=== PATIENT | male | born 1980 | race Caucasian/White ===

== ENCOUNTER 2024-05-07 21:05 | Emergency (ER) | payer BC, SELFPAY ==
[2024-05-07] VITALS (8 sets, daily range): BP systolic 101–173; BP diastolic 61–113; BMI 41.0
--- NOTE | 2024-05-07 21:36 | ED.GENMED ---
History of Present Illness
General
Chief Complaint: Heart Rate Problem
Source: patient
Exam Limitations: none
Time Seen by Provider: 05/07/24 21:26
Nursing documentation reviewed up to this point in time: agreed with
History of Present Illness
History of Present Illness:
44-year-old male with a past medical history of asthma, diabetes, atrial fibrillation presents to the ER for evaluation of palpitations and irregular heart rate. Patient was recently diagnosed with atrial fibrillation and was seen at [place] [facility]. He was seen by Dr. Jaquez for cardiology. He says initially he was seen in the ER and was rate controlled and started on medications�currently taking Toprol, Eliquis, amiodarone. He says symptoms recurred and he returned last Monday
to [place] emergency room and was admitted and he had a HERNAN cardioversion. He was discharged Monday and a few days later he started again with palpitations and his Apple Watch noted that he was in atrial fibrillation again. Palpitations and
dizziness became more pronounced today which prompted visit to the ER. He denies any shortness of breath, he reports some mild chest discomfort but no significant chest pain. Denies any other complaints. He has been compliant with all medications
without missed doses.
Past History
Past History
ED Past Medical History: None
ED Past Surgical History: None
Review of Systems
Review of Systems
All Other Systems: ROS reviewed and negative except as documented in HPI and ROS
Constitutional: Denies fever
Respiratory: Denies cough or trouble breathing
Cardiac: Reports palpitations; Denies chest pain
ABD/GI: Denies abdominal pain
Musculoskeletal: Denies edema
Neurological: Reports dizzy; Denies headache
Phy Exam
Physical Exam
Physical Exam:
General: Awake, alert, oriented x3; no acute distress
Head: Normocephalic, atraumatic
Eyes: Conjunctiva normal
Throat: Airway intact, handling secretions
Neck: Trachea midline, no JVD
Lungs: Clear to auscultation bilaterally, no wheezing, rales, rhonchi
Heart: Tachycardia with irregularly irregular rhythm, no murmurs, gallops, or rubs
Neuro: No gross deficits
Extremities: No edema in extremities, warm and well-perfused
Scores
Heart Failure Risk
Heart Failure Risk Score: Not Applicable
Heart Score for Chest Pain Patients
STEMI patient?: Not applicable
Withdrawal Assessment of Alcohol
Withdrawal Assessment Completed?: Not applicable
Course
Orders/Labs/Results
Orders:
Orders
05/07/24 21:07
Electrocardiogram (*1) Urgent
Reason for Study: Atrial Fibrillation
EKG- Treatment ONCE
05/07/24 22:00
Complete Blood Count/With Diff Urgent
05/07/24 22:01
CMP [Comprehensive Metabolic Panel] Urgent
05/07/24 22:09
INR [Prothrombin Time] Urgent
PTT Urgent
05/07/24 22:30
Propofol [Diprivan] 20 ml .ROUTE .STK-MED
05/07/24 22:47
Propofol [Diprivan] 130 mg IV NOW STA
05/07/24 22:48
EKG with chest pain [ECG as needed] As Directed
ECG as needed for:: Rhythm Change
Abnormal Lab Results
05/07/24 05/07/24 05/07/24
22:00 22:01 22:09
Absolute Lymphs (auto) 3.5 H 10^3/uL
(1.2-3.4)
Absolute Monos (auto) 0.9 H 10^3/uL
(0.1-0.6)
PT 15.2 H Sec
(11.4-14.6)
BUN 21 H mg/dl
(9-20)
Glucose 109 H mg/dl
(70-99)
05/07/24 22:00
05/07/24 22:01
Vital Signs
Initial and Last Documented VS:
Initial Vital Signs
Temp Pulse Resp BP Pulse Ox
37.1 C 141 18 173/113 98
05/07/24 21:07 05/07/24 21:07 05/07/24 21:07 05/07/24 21:07 05/07/24 21:07
Last Documented Vital Signs
Temp Pulse Resp BP Pulse Ox
36.7 C 73 18 120/98 99
05/07/24 22:35 05/07/24 22:50 05/07/24 22:50 05/07/24 22:50 05/07/24 22:50
Procedures
Cardioversion
Indication:: Afib
Performed by:: Yaya Fabian MD
Synchronized?: Yes
Energy Used: 200 joules
Number of attempts: 1
Successful?: Yes
Complications: none
ASA Risk Score: Class II
Any reaction or bad outcome to prior sedation/anesthesia?: No history of a reaction
Sedation level to be attained: moderate
Chart and allergies reviewed: Yes
Patient reassessed prior to sedation: Yes
Time out completed at (validating right patient & procedure): 22:37
History of difficult intubation: No
Airway free of obstruction: Yes
Patient has a gag reflex: Yes
Patient is able to open mouth: Yes
Patient has no dentures: Yes
Patient has no loose teeth: Yes
Medication administered by Provider during Moderate Sedation: IV Propofol (mg)
Total dose administered: 130
Time drug administered: 22:37
Start Time: 22:37
Stop Time: 22:50
MDM/Problems Addressed
Differential Diagnosis Includes:
Atrial fibrillation/atrial flutter
MDM/Problems Addressed:
44-year-old male presents for evaluation of palpitations and dizziness, irregular heart rate; recently diagnosed atrial fibrillation as described above. Hypertensive and tachycardic on arrival. Physical exam as above. His EKG shows atrial flutter
with 2:1 conduction. I was able to review external report from HERNAN cardioversion at [facility] earlier this week�HERNAN showed no thrombus left atrial appendage. Case discussed with cardiology regarding elective ED cardioversion versus rate
control�with no thrombus noted on recent HERNAN and continuous anticoagulation since, elective ED cardioversion reasonable in this circumstance. I had a long discussion with the patient offered elective cardioversion versus rate control�he wishes to
proceed with cardioversion. Will send basic labs and proceed with cardioversion.
Labs reviewed: CBC and CMP unremarkable. Will proceed with ED cardioversion as above.
Cardioversion successful confirmed by EKG. Patient feeling well after procedure. Will monitor status post sedation and if he remains stable and asymptomatic can discharge with outpatient cardiology referral.
Chronic conditions affecting care:
Atrial fibrillation
Acute Exacerbation and/or Progression of Chronic Illness:
Acutely hypertensive
Acute Exacerbation and/or Progression of Chronic Illness: HTN
*Pulse Oximetry
Patient hypoxic: no
*EKG
Interpreted by ED Provider?: Yes
Heart Rate: 140
Rate: tachycardiac
Rhythm: atrial flutter
[place]: normal axis
Ischemia: non-specific ST changes
*Critical Care Note
Total Time (30-74mins, 75-104mins- exclusive of procedures): Not Applicable
Data Reviewed
Review of Other/Old Records Reveals: Testing (Reviewed external records from [place] via online patient portal including HERNAN/cardioversion report)
Source: patient, records and spouse
Patient Management
Discussion with other providers: Firer Bisque Kiln (Discussed with cardiology)
ED Attending Note
-
Portions of this chart may have been created with voice recognition software.� Occasional wrong word or��sound alike� substitutions may have occurred due to the inherent limitations of voice recognition software.
Discharge Plan
Departure
Patient with high blood pressure during this ER visit?: Yes
Discharge Problem:
Atrial flutter with rapid ventricular response, Encounter for cardioversion procedure
Instructions: Cardioversion - Discharge instructions, MODERATE SEDATION ADULT
Prescriptions:
No Action
albuterol sulfate 1.25 mg/3 mL Solution For Nebulization
1.25 mg INHALATION Q4H
metoprolol succinate 25 mg Tablet Extended Release 24 Hr
25 mg PO BID
Eliquis 5 mg Tablet
5 mg PO BID
Mounjaro 2.5 mg/0.5 mL Pen Injector
2.5 mg SC WEEKLY
Rx Instructions:
monday
amiodarone
200 mg PO BID
Referrals:
Franny Gama MD [Family Provider] -
Ernie Jaquez MD [Non-Admitting Privileges] - Keep scheduled appt
Activity Restrictions/Additional Instructions:
Thank you for visiting the Emergency Department at [facility].
1. Please schedule a follow up appointment as directed. Call first thing tomorrow morning to make an appointment.
2. If indicated, please take your medications as instructed and indicated on discharge paperwork.
3. If any of your symptoms do not improve, or persist, or become more severe within 6-12 hours, please return to the emergency department for further care.
4. Please return to the emergency department if you develop a headache, neck pain/stiffness, fever greater than 100.4F, chest pain, shortness of breath, persistent nausea, vomiting, slurred speech, difficulty walking, numbness/tingling, weakness,
signs of infection or any other symptoms that are worrisome to you.
Please call [phone] if you have any questions.
Interventions
Interventions:
*Risk Screen - Suicide Last Done: 05/07/24 21:09
*General Assessment Last Done: 05/07/24 21:09
*Neglect/Abuse Screening Last Done: 05/07/24 21:09
*ED- Fall Risk Assessment Last Done: 05/07/24 22:33
*ED COVID-19 Vaccine History Last Done: 05/07/24 21:09
ED- Cardiac Assessment Last Done: 05/07/24 22:33
Discharge Date and Time
Print Language: YAKUT
[2024-05-07 22:14] LABS: % Basophils 0.6 % (0-2); % Eosinophils 3.7 % (0-6); % Immature Granulocytes 0.4 % (0-0.5); % Lymphocytes 33.3 % (20.5-51.1); % Monocytes 8.5 % (1.7-9.3); % Neutrophils 53.5 % (42.2-75.2); Absolute Basophils 0.1 10^3/uL (0-0.2); Absolute Eosinophils 0.4 10^3/uL (0-0.7); Absolute Lymphocytes 3.5 10^3/uL (1.2-3.4); Absolute Monocytes 0.9 10^3/uL (0.1-0.6); Absolute Neutrophils 5.6 10^3/uL (1.4-6.5); Hematocrit 44.5 % (39.0-52.0); Hemoglobin 15.2 g/dL (13.0-18.0); Mean Corp Hgb Conc. 34.2 g/dL (33.0-37.0); Mean Corpuscular Hgb 28.8 pg (27.0-31.0); Mean Corpuscular Volume 84.4 fL (80.0-94.0); Mean Platelet Volume 9.8 fL (7.4-10.4); Nucleated Red Blood Cells % 0 % (-); Platelet Count 377 10^3/uL (130-400); Red Blood Cell Count 5.27 10^6/uL (4.70-6.10); Red Cell Dist. Width 13.2 % (11.5-14.5); White Blood Cell Count 10.5 10^3/uL (4.8-10.8)
[2024-05-07 22:25] LABS: APTT 34.2 Sec (23.4-35.0); INR 1.17; PT 15.2 Sec (11.4-14.6)
[2024-05-07 22:27] LABS: ALT (SGPT) 39 U/L (0-50); AST (SGOT) 27 U/L (17-59); Albumin 4.5 g/dl (3.5-5.0); Alkaline Phosphatase 87 U/L (38-126); Blood Urea Nitrogen 21 mg/dl (9-20); Calcium 9.8 mg/dl (8.4-10.2); Carbon Dioxide 23 mmol/L (22-30); Chloride 105 mmol/L (98-107); Glucose 109 mg/dl (70-99); Sodium 139 mmol/L (135-145); Total Bilirubin 0.6 mg/dl (0.2-1.3); Total Protein 8.2 g/dl (6.3-8.2); eGFR > 60.00
[2024-05-07] MEDS: DIPRIVAN 130 MG IV (22:48)
[2024-05-08] VITALS: BP 115/76
[2024-05-08 00:07] VITALS: BP 102/75
[2024-05-08 00:10] VITALS: BP 117/80
== END 2024-05-08 00:42 | disposition home or self-care (01) ==
LOC: EMR 21:05
PROVIDERS: Emergency Medicine; EMERGENCY PHYSICIAN Emergency Medicine; FAMILY PHYSICIAN Internal Medicine
DX: I48.92 Unspecified atrial flutter (principal); R42 Dizziness and giddiness; R07.89 Other chest pain; E11.9 Type 2 diabetes mellitus without complications; I48.91 Unspecified atrial fibrillation; J45.909 Unspecified asthma, uncomplicated; Z79.01 Long term (current) use of anticoagulants; Z79.899 Other long term (current) drug therapy; Z79.84 Long term (current) use of oral hypoglycemic drugs
CPT/HCPCS: 92960; 99285; 99152; 80053; 85025; 85610; 85730; 93005

== ENCOUNTER 2024-05-18 22:18 | Emergency (ER) | payer BC, SELFPAY ==
[2024-05-18 22:54] LABS: % Basophils 0.6 % (0-2); % Eosinophils 2.7 % (0-6); % Immature Granulocytes 0.3 % (0-0.5); % Monocytes 7.4 % (1.7-9.3); Absolute Basophils 0.1 10^3/uL (0-0.2); Absolute Eosinophils 0.4 10^3/uL (0-0.7); Absolute Lymphocytes 3.6 10^3/uL (1.2-3.4); Absolute Neutrophils 7.9 10^3/uL (1.4-6.5); Hematocrit 44.9 % (39.0-52.0); Hemoglobin 15.2 g/dL (13.0-18.0); Mean Corp Hgb Conc. 33.9 g/dL (33.0-37.0); Mean Corpuscular Hgb 28.8 pg (27.0-31.0); Mean Platelet Volume 9.8 fL (7.4-10.4); Nucleated Red Blood Cells % 0 % (-); Platelet Count 338 10^3/uL (130-400); Red Blood Cell Count 5.28 10^6/uL (4.70-6.10); Red Cell Dist. Width 13.2 % (11.5-14.5)
[2024-05-18 23:04] LABS: ALT (SGPT) 32 U/L (0-50); AST (SGOT) 26 U/L (17-59); Albumin 4.8 g/dl (3.5-5.0); Alkaline Phosphatase 85 U/L (38-126); Blood Urea Nitrogen 26 mg/dl (9-20); Calcium 9.9 mg/dl (8.4-10.2); Carbon Dioxide 23 mmol/L (22-30); Chloride 108 mmol/L (98-107); Glucose 103 mg/dl (70-99); Potassium 4.2 mmol/L (3.5-5.1); Sodium 143 mmol/L (135-145); Total Bilirubin 0.9 mg/dl (0.2-1.3); Total Protein 8.7 g/dl (6.3-8.2); eGFR > 60.00
[2024-05-19 00:46] VITALS: BP 116/72; BMI 37.7
[2024-05-19 01:00] VITALS: BP 107/59
[2024-05-19 01:29] LABS: Troponin I < 0.012 ng/ml
--- NOTE | 2024-05-19 01:45 | EDRN ---
Updated patient and on labs and on delay for seeing provider, understanding and resting comfortably
[2024-05-19 02:00] VITALS: BP 126/70
--- NOTE | 2024-05-19 02:18 | ED.GENMED ---
History of Present Illness
General
Chief Complaint: Cardiac Symptoms
Source: patient and records
Exam Limitations: none
Time Seen by Provider: 05/19/24 02:05
History of Present Illness
History of Present Illness:
44yoM with a history of atrial fibrillation/flutter presenting with his for evaluation of palpitations. Patient was at work this evening. 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 He started to have some fluttering in his chest and started to feel
lightheaded. Symptoms feel similar to his previous episodes of A-fib so he decided to come to the ED for evaluation. His Apple Watch indicated that his heart rate was up to 120 today but would improve after he rested. He denies any chest pain,
shortness of breath, syncope. He is currently feeling much better. Patient was recently diagnosed with A-fib earlier this month and was admitted at [facility] for several days. He was seen in the ED on 05/07/2024 for atrial flutter with
RVR and he was cardioverted at that time. Patient is currently maintained on Eliquis, amiodarone, and metoprolol. His sausage linker at [facility] did refer him for an ablation but he has not scheduled this yet.
Past History
Past History
ED Past Medical History: None
ED Past Surgical History: None
Phy Exam
General Physical Exam
General Presentation: well appearing and no apparent distress
General age: appears stated age
General Skin: warm and dry
General Habitus: normal
General Mental: alert
ENT Exam
ENT Exam: normocephalic
Cardiovascular Exam
Cardiovascular Exam: regular rate/rhythm, no edema, no murmur and normal peripheral pulses (2+ DP pulses bilaterally)
Neurological Exam
Neurological Exam: alert
Mark Coma Scale
Eye Opening: Spontaneous
Verbal Response: Oriented
Motor Response: Obeys Commands
GCS Total Score: 15
Skin Exam
Skin Exam: normal color and warm/dry
Psychiatric Exam
Psychiatric Exam: normal mood/affect
Course
Orders/Labs/Results
Orders:
Orders
05/18/24 22:18
ECG [Electrocardiogram (*1)] Urgent
Reason for Study: Atrial Flutter
05/18/24 22:19
EKG- Treatment ONCE
05/18/24 22:33
Complete Blood Count/With Diff Urgent
Comprehensive Metabolic Panel Urgent
Magnesium Urgent
Comment: ADDED
TSH Urgent
Comment: ADDED
05/19/24 00:56
Troponin I Urgent
05/19/24 02:05
Add On- LAB Urgent
Tests Added?: magnesium, TSH
Abnormal Lab Results
05/18/24
22:33
WBC 13.0 H 10^3/uL
(4.8-10.8)
Absolute Neuts (auto) 7.9 H 10^3/uL
(1.4-6.5)
Absolute Lymphs (auto) 3.6 H 10^3/uL
(1.2-3.4)
Absolute Monos (auto) 1.0 H 10^3/uL
(0.1-0.6)
Chloride 108 H mmol/L
(98-107)
BUN 26 H mg/dl
(9-20)
Glucose 103 H mg/dl
(70-99)
Total Protein 8.7 H g/dl
(6.3-8.2)
05/18/24 22:33
05/18/24 22:33
Vital Signs
Initial and Last Documented VS:
Initial Vital Signs
Temp
98.6 F
05/18/24 22:26
Last Documented Vital Signs
Temp Pulse Resp BP Pulse Ox
98.6 F 55 12 138/74 96
05/18/24 22:26 05/19/24 03:00 05/19/24 03:00 05/19/24 03:00 05/19/24 03:00
MDM/Problems Addressed
Differential Diagnosis Includes:
44yoM here with palpitations. Recent diagnosis of afib/flutter. Currently feeling significantly improved. No associated CP/SOB or syncope. VSS. EKG obtained in triage which shows normal sinus rhythm with a single PVC. Exam is reassuring.
Differential diagnosis includes but is not limited to: Arrhythmia, electrolyte abnormality, thyroid dysfunction
Initial ED plan: Labs obtained in triage. White count is 13 which is nonspecific. Potassium and troponin within normal limits. Will add on magnesium and TSH
*EKG
Interpreted by ED Provider?: Yes
EKG Intrepretation Date: 05/19/24
Heart Rate: 71
Rate: normal
Rhythm: sinus and PVC's
[place]: normal axis
Interval: normal interval
QRS Pattern: normal QRS
Ischemia: no ischemia
*Critical Care Note
Total Time (30-74mins, 75-104mins- exclusive of procedures): Not Applicable
Update Note
Update Note:
TSH and magnesium WNL. No telemetry events during ED stay and he remains in NSR on reassessment. He is stable for discharge. He was encouraged to f/u with his sausage linker. ED return precautions discussed. Patient in agreement with plan and was
discharged in stable condition.
ED Attending Note
-
Portions of this chart may have been created with voice recognition software.� Occasional wrong word or��sound alike� substitutions may have occurred due to the inherent limitations of voice recognition software.
Discharge Plan
Departure
Patient Disposition: Home (Routine Discharge)
Date of Disposition: 05/19/24
Time of Disposition: 03:02
Patient with high blood pressure during this ER visit?: No
Discharge Problem:
Palpitations
Instructions: Heart Palpitations
Prescriptions:
No Action
albuterol sulfate 1.25 mg/3 mL Solution For Nebulization
1.25 mg INHALATION Q4H
metoprolol succinate 25 mg Tablet Extended Release 24 Hr
25 mg PO BID
Eliquis 5 mg Tablet
5 mg PO BID
Mounjaro 2.5 mg/0.5 mL Pen Injector
2.5 mg SC WEEKLY
Rx Instructions:
monday
amiodarone
200 mg PO BID
Referrals:
Franny Gama MD [Family Provider] -
Activity Restrictions/Additional Instructions:
Please follow-up with your sausage linker. Return to the ER with any new or worsening symptoms.
Interventions
Interventions:
*Risk Screen - Suicide Last Done: 05/18/24 22:26
*General Assessment Last Done: 05/18/24 22:26
*Neglect/Abuse Screening Last Done: 05/18/24 22:26
*ED- Fall Risk Assessment Last Done: 05/19/24 00:46
*ED COVID-19 Vaccine History Last Done: 05/18/24 22:26
*Nursing Disposition Last Done: 05/19/24 03:13
ED- Pulmonary Assessment Last Done: 05/19/24 01:06
ED- Cardiac Assessment Last Done: 05/19/24 01:06
Discharge Date and Time
Discharge Date/Time: 05/19/24 03:13
Print Language: BRUNEIAN
[2024-05-19 02:53] LABS: Magnesium 1.9 mg/dl (1.6-2.3)
[2024-05-19 03:00] VITALS: BP 138/74
[2024-05-19 03:37] LABS: TSH 3.12 uIU/ml (0.47-4.68)
== END 2024-05-19 03:13 | disposition home or self-care (01) ==
LOC: EMR 22:18
PROVIDERS: Emergency Medicine; EMERGENCY PHYSICIAN Emergency Medicine; FAMILY PHYSICIAN Internal Medicine
DX: R00.2 Palpitations (principal); I48.91 Unspecified atrial fibrillation; I48.92 Unspecified atrial flutter; Z79.01 Long term (current) use of anticoagulants; Z79.899 Other long term (current) drug therapy
CPT/HCPCS: 99283; 80053; 83735; 84443; 84484; 85025; 93005

== ENCOUNTER 2024-05-23 16:07 | Emergency (ER) | payer BC, SELFPAY ==
[2024-05-23] VITALS (16 sets, daily range): BP systolic 99–133; BP diastolic 47–91
[2024-05-23 16:48] LABS: % Basophils 0.7 % (0-2); % Eosinophils 4.7 % (0-6); % Immature Granulocytes 0.2 % (0-0.5); % Lymphocytes 34.5 % (20.5-51.1); % Monocytes 6.3 % (1.7-9.3); % Neutrophils 53.6 % (42.2-75.2); Absolute Basophils 0.1 10^3/uL (0-0.2); Absolute Eosinophils 0.4 10^3/uL (0-0.7); Absolute Lymphocytes 2.8 10^3/uL (1.2-3.4); Absolute Monocytes 0.5 10^3/uL (0.1-0.6); Absolute Neutrophils 4.4 10^3/uL (1.4-6.5); Hematocrit 45.9 % (39.0-52.0); Hemoglobin 15.2 g/dL (13.0-18.0); Mean Corp Hgb Conc. 33.1 g/dL (33.0-37.0); Mean Corpuscular Hgb 28.9 pg (27.0-31.0); Mean Corpuscular Volume 87.3 fL (80.0-94.0); Mean Platelet Volume 9.8 fL (7.4-10.4); Nucleated Red Blood Cells % 0 % (-); Platelet Count 329 10^3/uL (130-400); Red Blood Cell Count 5.26 10^6/uL (4.70-6.10); Red Cell Dist. Width 13.4 % (11.5-14.5); White Blood Cell Count 8.2 10^3/uL (4.8-10.8)
[2024-05-23 16:59] LABS: INR 1.04; PT 14.1 Sec (11.4-14.6)
[2024-05-23 17:00] LABS: ALT (SGPT) 26 U/L (0-50); AST (SGOT) 22 U/L (17-59); Albumin 4.2 g/dl (3.5-5.0); Alkaline Phosphatase 71 U/L (38-126); Blood Urea Nitrogen 13 mg/dl (9-20); Calcium 9.5 mg/dl (8.4-10.2); Carbon Dioxide 23 mmol/L (22-30); Chloride 109 mmol/L (98-107); Glucose 212 mg/dl (70-99); Potassium 4.2 mmol/L (3.5-5.1); Sodium 142 mmol/L (135-145); Total Bilirubin 0.7 mg/dl (0.2-1.3); Total Protein 7.5 g/dl (6.3-8.2); eGFR > 60.00
[2024-05-23 17:12] LABS: Troponin I < 0.012 ng/ml
--- NOTE | 2024-05-23 17:50 | ED.GENMED ---
History of Present Illness
General
Chief Complaint: Heart Rate Problem
Source: patient
Exam Limitations: none
Time Seen by Provider: 05/23/24 17:40
History of Present Illness
History of Present Illness:
See MDM
Past History
Past History
ED Past Medical History: Arrthythmia and NIDDM
ED Past Surgical History: None
Phy Exam
Physical Exam
Physical Exam:
See MDM
Course
Orders/Labs/Results
Orders:
Orders
05/23/24 16:08
Electrocardiogram (*1) Urgent
Reason for Study: Atrial Flutter
EKG- Treatment ONCE
05/23/24 16:40
Complete Blood Count/With Diff Urgent
Comprehensive Metabolic Panel Urgent
PT/INR [Prothrombin Time] Urgent
Troponin I Urgent
05/23/24 18:22
Propofol [Diprivan] 20 ml .ROUTE .STK-MED
05/23/24 18:48
EKG [Electrocardiogram (*1)] Urgent
Reason for Study: Abnormal EKG
EKG- Treatment ONCE
Abnormal Lab Results
05/23/24
16:40
Chloride 109 H mmol/L
(98-107)
Glucose 212 H mg/dl
(70-99)
05/23/24 16:40
05/23/24 16:40
Vital Signs
Initial and Last Documented VS:
Initial Vital Signs
Temp Pulse Resp BP Pulse Ox
97.9 F 152 18 133/90 96
05/23/24 16:12 05/23/24 16:12 05/23/24 16:12 05/23/24 16:12 05/23/24 16:12
Last Documented Vital Signs
Temp Pulse Resp BP Pulse Ox
97.9 F 82 13 110/49 94
05/23/24 16:12 05/23/24 19:31 05/23/24 19:31 05/23/24 19:31 05/23/24 19:31
Procedures
Moderate Sedation
ASA Risk Score: Class II
Chart and allergies reviewed: Yes
Consent for anesthesia obtained: Yes
Time out completed (validating right patient & procedure): Yes
Moderate Sedation Start Time(when first medication is given): 18:40
History of difficult intubation: No
Airway free of obstruction: Yes
Patient has a gag reflex: Yes
Patient is able to open mouth: Yes
Patient has no dentures: Yes
Patient has no loose teeth: Yes
Medication administered by Provider during Moderate Sedation: IV Propofol (mg)
Total dose administered: 175
Time drug administered: 18:40
Moderate Sedation Procedure End Time: 18:40
Cardioversion
Indication:: Other (A flutter)
Performed by:: Epifanio Red DO
Synchronized?: Yes
Energy Used: Other (70 Joules)
Number of attempts: 1
Successful?: Yes
ASA Risk Score: Class II
Any reaction or bad outcome to prior sedation/anesthesia?: No history of a reaction
Sedation level to be attained: moderate
Chart and allergies reviewed: Yes
Patient reassessed prior to sedation: Yes
Time out completed at (validating right patient & procedure): 18:38
History of difficult intubation: No
Airway free of obstruction: Yes
Patient has a gag reflex: Yes
Patient is able to open mouth: Yes
Patient has no dentures: Yes
Patient has no loose teeth: Yes
Medication administered by Provider during Moderate Sedation: IV Propofol (mg)
Total dose administered: 175
Time drug administered: 18:40
Start Time: 18:40
Stop Time: 18:55
MDM/Problems Addressed
Differential Diagnosis Includes:
HPI and MDM Narrative:
44-year-old male presenting with palpitations. This has been ongoing since Monday. He was recently diagnosed with A-fib/a flutter 1 month ago. He was placed on Eliquis, metoprolol and amiodarone. Patient has been cardioverted twice over the past
month. He is not necessarily interested in cardioversion again. He is post to follow-up with cardiology to discuss ablation. He complains of palpitations and shortness of breath with exertion. Patient consistently tachycardic in the 150s and EKG
consistent with A flutter
Physical exam
General: Well appearing and non-toxic
HEENT: protecting airway
Neck: appears supple
CV: No evidence of cyanosis. Tachycardic
Resp: No accessory muscle use
Abd: Non-distended
Extremities: No deformities. No leg edema
Neuro: alert
Psych: Normal affect
Skin: Intact
Problems Addressed including Acute and Chronic Conditions affecting care:
1. Atrial flutter
Acuity: acute
Prognosis: stable
Details: Will discuss case with cardiology
Updates
Case discussed with cardiology. We offered the patient cardioversion and expedite follow-up or admit on amnio drip. Patient states he does not feel great and opted for cardioversion and discharge. Patient tolerated cardioversion well. Will
increase amiodarone back up to twice a day
Differential Diagnosis (but not limited to): Atrial flutter, dehydration
Testing considered: Troponin
Drug therapy (if applicable): OTC meds, please see d/c instruction regarding Rx drugs
Amount and/or Complexity of Data Reviewed
Clinical info obtained from: Patient
External data reviewed: N/A
Labs I independently reviewed (but not limited to): Mild hyperglycemia
Radiology: N/A
Pulse Ox: not hypoxic
EKG independently reviewed: Atrial flutter, normal axis, no STEMI
Medication Administration Professional: A flutter
Critical Care: N/A
Risk of Complication:
Social Determinants of health: Good social support
Discussed with other providers: Film Touch Up Inspector
Escalation of Care includes Admit/Obs: After being observed in the Emergency Department, pt stable for discharge.
Occasional wrong word or 'sound a like' substitutions may have occurred due to the inherent limitations of voice recognition software. Read the chart carefully and recognize, using context, where substitutions have occurred.
*Critical Care Note
Total Time (30-74mins, 75-104mins- exclusive of procedures): Not Applicable
ED Attending Note
-
Portions of this chart may have been created with voice recognition software.� Occasional wrong word or��sound alike� substitutions may have occurred due to the inherent limitations of voice recognition software.
Discharge Plan
Departure
Patient Disposition: Home (Routine Discharge)
Date of Disposition: 05/23/24
Time of Disposition: 18:53
Patient with high blood pressure during this ER visit?: No
Discharge Problem:
Atrial flutter
Instructions: Atrial Fibrillation (DC), MODERATE SEDATION ADULT
Prescriptions:
No Action
albuterol sulfate 1.25 mg/3 mL Solution For Nebulization
1.25 mg INHALATION Q4H
metoprolol succinate 25 mg Tablet Extended Release 24 Hr
25 mg PO BID
Eliquis 5 mg Tablet
5 mg PO BID
Mounjaro 2.5 mg/0.5 mL Pen Injector
2.5 mg SC WEEKLY
Rx Instructions:
monday
amiodarone
200 mg PO BID
Referrals:
Franny Gama MD [Family Provider] -
Activity Restrictions/Additional Instructions:
Please return for any worsening symptoms.
You may return at any time if you have further concerns.
Please follow up with your doctor at the first available appointment, preferably this week.
As we discussed, the shipfitter helper indicated that they will expedite your follow-up. If you do not hear from them, please give them a call.
Thank you for choosing [facility].
Interventions
Interventions:
*Risk Screen - Suicide Last Done: 05/23/24 16:12
*General Assessment Last Done: 05/23/24 16:12
*Neglect/Abuse Screening Last Done: 05/23/24 16:12
*ED- Fall Risk Assessment Last Done: 05/23/24 16:29
*ED COVID-19 Vaccine History Last Done: 05/23/24 16:12
*Nursing Disposition Last Done: 05/23/24 20:05
ED- Cardiac Assessment Last Done: 05/23/24 16:29
ED- Pulmonary Assessment Last Done: 05/23/24 16:29
Discharge Date and Time
Discharge Date/Time: 05/23/24 19:50
Print Language: [place]
== END 2024-05-23 19:50 | disposition home or self-care (01) ==
LOC: EMR 16:07
PROVIDERS: EMERGENCY PHYSICIAN Student in an Organized Health Care Education/Training Program; FAMILY PHYSICIAN Internal Medicine
DX: I48.92 Unspecified atrial flutter (principal); E11.65 Type 2 diabetes mellitus with hyperglycemia; Z79.01 Long term (current) use of anticoagulants; Z79.899 Other long term (current) drug therapy
CPT/HCPCS: 92960; 99152; 99285; 80053; 84484; 85025; 85610; 93005

== ENCOUNTER 2024-08-07 06:00 | Day surgery (SDC) | payer BC, SELFPAY ==
[2024-07-18 13:46] VITALS: BMI 37.9
[2024-07-18 14:09] LABS: % Basophils 0.9 % (0-2); % Eosinophils 3.9 % (0-6); % Immature Granulocytes 0.3 % (0-0.5); % Lymphocytes 32.6 % (20.5-51.1); % Monocytes 9.2 % (1.7-9.3); % Neutrophils 53.1 % (42.2-75.2); Absolute Basophils 0.1 10^3/uL (0-0.2); Absolute Eosinophils 0.4 10^3/uL (0-0.7); Absolute Lymphocytes 2.9 10^3/uL (1.2-3.4); Absolute Monocytes 0.8 10^3/uL (0.1-0.6); Absolute Neutrophils 4.8 10^3/uL (1.4-6.5); Hematocrit 46.4 % (39.0-52.0); Hemoglobin 15.3 g/dL (13.0-18.0); Mean Corpuscular Hgb 29.4 pg (27.0-31.0); Mean Corpuscular Volume 89.2 fL (80.0-94.0); Nucleated Red Blood Cells % 0 % (-); Platelet Count 358 10^3/uL (130-400)
[2024-07-18 14:18] LABS: INR 0.92; PT 12.9 Sec (11.4-14.6)
[2024-07-18 14:37] LABS: ALT (SGPT) 28 U/L (0-50); AST (SGOT) 19 U/L (17-59); Albumin 4.6 g/dl (3.5-5.0); Alkaline Phosphatase 62 U/L (38-126); Blood Urea Nitrogen 15 mg/dl (9-20); Calcium 9.7 mg/dl (8.4-10.2); Carbon Dioxide 26 mmol/L (22-30); Chloride 109 mmol/L (98-107); Estimated Creatinine Clearance > 125 ml/min; Glucose 105 mg/dl (70-99); Magnesium 2.3 mg/dl (1.6-2.3); Sodium 143 mmol/L (135-145); Total Bilirubin 0.5 mg/dl (0.2-1.3); Total Protein 8.3 g/dl (6.3-8.2); eGFR > 60.00
--- NOTE | 2024-07-18 15:13 | HPS.HSE ---
Family Physician
-
Family Physician: Franny Gama
Chief Complaint
-
Atrial fibrillation. Typical atrial flutter.
History of Present Illness
The patient is a 44 year old male presenting today for typical atrial flutter. He does report a history of palpitations, vague chest discomfort, shortness of breath, and fatigue all likely secondary to this diagnosis. His symptoms have
been present over the last several months; however, they have been progressively worsening since April 2024. He has required several hospitalizations and emergency room visits due to his overwhelming symptoms. He has undergone 3 cardioversions
previously. Per previous documentation, he is also noted to have atrial fibrillation. He is on current pharmacological therapy with Amiodarone and Metoprolol Succinate. He does report compliance with Eliquis for oral anticoagulation due to a
CHADS-VASc of 2. His most recent CAM revealed atrial flutter as his predominant rhythm with an average heart rate of 124 beats per minute. He is interested in pursuing pulmonary vein isolation for more definitive arrhythmia management. He denies any
current complaints today such as chest pain, shortness of breath at rest, nausea, vomiting, diarrhea, lightheadedness, dizziness, cough, sore throat, or fever.
Medical History
Past Medical History
Past Medical History: Reports Other
Additional Past Medical History:
1. Typical atrial flutter and atrial fibrillation, status post cardioversion x3; pharmacological therapy with Amiodarone and Metoprolol Succinate and oral anticoagulation with Eliquis.
2. Sinus tachycardia, undergoing medication adjustments.
3. Cardiomyopathy, likely tachycardia induced.
4. Asthma, mild and intermittent.
5. Obstructive sleep apnea, compliant with CPAP.
6. Non-insulin dependent diabetes.
7. Fatty liver disease.
8. Obesity, BMI 37.9.
9. History of tobacco abuse.
Past Surgical History: Reports Other
Additional Past Surgical History:
1. Cardioversion x3.
2. Transesophageal echocardiogram.
3. Right inguinal hernia repair.
4. Umbilical hernia repair.
5. Lymph node excision from groin.
6. Vasectomy.
7. Brandywine teeth extraction.
8. Colonoscopy.
Social History
Tobacco: Former Smoker (He is a former 1 pack per day cigarette smoker who quit tobacco altogether 10 years ago. )
Alcohol: Other (Rare use reported. )
Personal:
Living: Other (He lives with his and 3 daughters in a twin style home. )
Family History
Family History: Not pertinent
Allergies / Home Medications
Allergy/Medication List:
Home medications:
1. ProAir HFA inhaler 2 puffs up to 6 times a day as needed.
2. Amiodarone 200 mg p.o. twice a day.
3. Apixaban 5 mg p.o. twice a day.
4. Metoprolol Succinate 75 mg p.o. twice a day.
5. Singulair 10 mg p.o. daily.
6. Mounjaro 5 mg subcutaneous on Fridays.
Allergies: Seasonal. No known drug allergies.
Review of Systems
-
A 12 point ROS was completed and negative except as noted: Yes
Physical Exam
Vital Signs
Blood pressure 119/88. Heart rate 124. Respirations 18. Pulse ox 97% on room air.
Height 6 feet, 1 inch. Weight 130.2 kg. BMI 37.9.
Physical Exam
General: Well Developed, Well Nourished and No Apparent Distress
HEENT: NormoCephalic, Moist mucous membranes, Atraumatic and PERRLA
Respiratory: Clear
Cardiac: Tachycardia
GI: Soft, Non Tender, Non Distended and Other (Obese. )
Musculoskeletal: No Edema and Normal Gait & Station
Skin: Warm and Dry
Neuro: AO x 3 and Nonfocal/grossly intact
Laboratory Results
-
07/18/24 13:11
07/18/24 13:11
Laboratory Results
PT 12.9 Sec (11.4-14.6) 07/18/24 13:11
INR 0.92 07/18/24 13:11
Total Bilirubin 0.5 mg/dl (0.2-1.3) 07/18/24 13:11
AST 19 U/L (17-59) 07/18/24 13:11
ALT 28 U/L (0-50) 07/18/24 13:11
Alkaline Phosphatase 62 U/L (38-126) 07/18/24 13:11
Magnesium 2.3.
Type and screen B negative.
EKG 07/18/2024: Sinus tachycardia. T wave abnormality, consider inferior ischemia.
Chest CT 07/18/2024: Early branching of the left superior pulmonary vein. Otherwise, conventional pulmonary venous anatomy. No evidence for left atrial thrombus.
Impression/Plan
-
IMPRESSION/PLAN:
1. Typical atrial flutter and atrial fibrillation: The patient is in need of pulmonary vein isolation with Dr. Raman López on 08/07/2024. The benefits and risks of the procedure have been explained to the patient. The patient understands these
risks and wishes to proceed. He will not be required to undergo a pre-procedural transesophageal echocardiogram as he has been compliant with his home oral anticoagulation. He is aware to continue Eliquis uninterrupted prior to his procedure. He
will hold his Mounjaro within 1 week of his ablation. He will take no medications the morning of his procedure.
[2024-08-07] VITALS (14 sets, daily range): BP systolic 63–133; BP diastolic 20–100; BMI 35.6
[2024-08-07 06:56] LABS: Glucose - Point of Care 114 mg/dl (70-99)
--- NOTE | 2024-08-07 07:32 | ITS.CL.ABL ---
[facility] - Ablation
Ablation
Procedure Report:
Primary Rn Clinical Documentation: Dr Ernie Jaquez
Procedure Date: 08/07/2024
Patient History:
Patient is a pleasant 44-year-old male with a past medical history significant for asthma, diabetes mellitus type 2, nonischemic cardiomyopathy (tachycardia induced) symptomatic paroxysmal atrial fibrillation, and symptomatic paroxysmal atrial
flutter.
See H&P for complete details.
Indication:
Symptomatic persistent atrial flutter
Symptomatic paroxysmal atrial fibrillation
Nonischemic cardiomyopathy
Arrhythmia Specific History:
Prior Medical Therapies for Rate and Rhythm Control:
X Beta-fercho
[ ] Calcium channel-fercho
X Amiodarone
[ ] Dronederone
[ ] Sotalol
[ ] Flecainide
[ ] Dofetilide
[ ] Options limited by bradycardia
[ ] Options limited by comorbid renal disease
Prior Procedural Therapies for AF/AFL:
X Cardioversion
[ ] Pulmonary Vein Isolation
[ ] Posterior Wall Isolation
[ ] Additional lines (Specify)
[ ] Surgical García-MAZE or PVI (Specify)
Procedure Performed:
X AF ablation procedure (67739) -- includes LA/CS pacing, trans-septal, 3D mapping, + ICE
[ ] +IV drug (77973)
X +Other Arrhythmia (80311) -- typical atrial flutter (CTI ablation)
X +Other AF Line/ablation (79517 x2 ) -- Floor line, roof line, posterior wall isolation
Risks and expected recovery has been explained in detail. Alternative options have been explored, and in a shared-decision making fashion we have decided that this was the most appropriate procedure.
Method
NPO status confirmed. Grounding pad applied. Defibrillator pads applied. Continuous surface ECG, pulse oximetry, and blood pressure were monitored. Procedure was performed under general anesthesia, with anesthesia services.
Both groins were clipped, prepped with Chloraprep, and draped in sterile fashion. Time out was called. Local anesthesia administered with bupivacaine. The right femoral vein was accessed for catheter placement, using ultrasound guidance (images
saved to record), micro-puncture needle/wire, and modified seldinger technique. 3 sheaths were placed. The following catheters were used:
[ ] Tacticath SE (D/F Curve) ablation catheter
X Viewflex 9Fr ICE catheter
X Inquiry decapolar 6Fr diagnostic catheter
[ ] CRD Hex 6Fr
X Agilis 11.5 Fr Steerable Sheath
X Sphere-9 Ablation catheter
[ ] Advisor HD Grid Mapping Catheter, SE
[ ] Acuson AcuNav 8 Fr ICE catheter
[ ]Other: [ ]
A multipolar catheter were advanced to the coronary sinus. Intracardiac ultrasound (ICE) was carefully advanced into the right atrium to guide sheath placement over a J-wire, catheter placement, guide trans-septal puncture, identify potential
complications, identify anatomic structures and ensure proper contact between ablation catheter and tissue.
Heparin was given to achieve and maintain a target ACT of 300-400 seconds throughout the procedure.
The Sphere-9 mapping/ablation catheter (through long steerable sheath was used to map, record, pace, and ablate. Three-dimensional electroanatomic mapping was utilized with careful attention to anatomic landmarks, including the coronary sinus,
IVC-RA and SVC-RA junction, tricuspid valve annulus, and region of the His bundle electrogram. Tachycardia was characterized by activation patterns in the CS catheters. Entrainment maneuvers established cavotricuspid isthmus-dependence. TCL for
Typical CTI dependent AFL 250 ms. An ablation line was created from the tricuspid annulus to the IVC in the 6:00 position (OCCITAN clock/caudal EAM projection). A combination of RF and PF was used with careful monitoring of impedance, AV conduction,
power, and temperature. The patient's atrial flutter terminated during ablation. Ablation continued until a line was complete from the tricuspid valve annulus to the IVC-RA junction during CS pacing. Clockwise and counterclockwise trans-isthmus
times were determined, and RA activation patterns confirmed bidirectional block.
Next, we turned our attention to the AF Ablation.
Trans-septal access was performed under ICE guidance. The trans-septal puncture was performed with a SafeSept wire through a Brockenbrough needle assembly through the steerable sheath. The wire was visualized as it entered the LSPV and system
advanced under ICE guidance and fluoroscopy into the LA. The Brockenbrough needle assembly, SafeSept wire and sheath dilator were removed under negative pressure. LA pressure was measured and recorded.
ICE and 3D mapping was performed to identify relevant cardiac structures. A careful 3D map was created to assess for regions of low-voltage and abnormal electrogram signals using Sphere- catheter. Additional mapping was performed as outlined below.
Prior to ablation, glycopyrrolate was provided. Sphere 9 catheter was advanced into the left atrium. Electroanatomic mapping was performed using the Sphere 9 catheter. Pulmonary vein isolation was performed using pulsed field ablation in a
circumferential manner. Contact was visualized via EAM, ICE, fluoroscopy, and EGM signals. Posterior wall isolation with floor and roof line was also performed by pulsed field ablation. Following completion of ablation lesions, a post-ablation
voltage/activation map was performed in sinus rhythm. Entrance and exit block were confirmed for each vein and the posterior wall.
Catheter and sheath were removed from the left atrium. Bidirectional block remained persistent at the CTI ablation line. Post-ablation intracardiac echo evaluation was consistent with pre-ablation with no changes and no pericardial effusion and
there is no left atrial thrombus or left ventricle thrombus seen. Electrophysiology study was performed. Hemostasis was obtained with figure of 8 stitch for each groin and with manual pressure. Protamine was used for reversal.
Estimated Blood Loss
5 mL
Complications
None
Fluoroscopy: 4.4 minutes; 40.8 mGy; DAP 5.02
LA Pressure: Pre 16 mmHg, post 19 mmHg
Baseline Intervals:
Rhythm: AFL
TCL: 250 ms
QRS: 92 ms
Post-Procedure Intervals:
CA: 176 ms
QRS: 94 ms
QT: 408 ms
QTc: 436 ms
A-A: 877 ms
R-R: 877 ms
AVWB: 240 ms
AERP: 600/220 ms
Recommendations
- Bedrest with straight-leg precautions as ordered
- Anticipate same day discharge if patient meeting clinical metrics
- Resume home medications as indicated
- Ok to resume anticoagulation tonight if patient and groin sites stable
- PPI daily for 30 days
- Plan for follow-up in office as scheduled
- Continue amiodarone with planned discontinuation at 3 months
� Repeat transthoracic echocardiogram per primary resolution specialist in 3 months for reassessment of EF
Raman López, , FACC, RS
Clinical Cardiac Operations Supervisor
cc: Dr Ernie Jaquez, Dr Franny Gama
[2024-08-07 08:57] LABS: ACT-LR - POC 245 Seconds (116-155)
[2024-08-07 09:11] LABS: ACT-LR - POC 303 Seconds (116-155)
[2024-08-07 09:29] LABS: ACT-LR - POC 343 Seconds (116-155)
[2024-08-07 10:02] LABS: ACT-LR - POC 321 Seconds (116-155)
[2024-08-07 10:20] LABS: ACT-LR - POC 372 Seconds (116-155)
[2024-08-07 10:29] LABS: ACT-LR - POC 252 Seconds (116-155)
[2024-08-07] MEDS: TYLENOL 650 MG PO (11:16)
--- NOTE | 2024-08-07 14:11 | W.PN.UPDATE ---
Update Note
Progress Note Update
44 yo WM s/p PVI (Same day). He denies cp, sob, john diet, groin c/d/i F08 intact, EKG SR. He will resume Eliquis tonight and continue amiodarone and metoprolol. We will add PPI for 30 days. Activity restrictions reviewed. He will f/u Dr. López in 3
mo. He is for d/c home after 330p if groin stable and voiding.
== END 2024-08-07 15:30 | disposition home or self-care (01) ==
LOC: CATH 06:00
PROVIDERS: ATTENDING PHYSICIAN Internal Medicine Cardiovascular Disease; FAMILY PHYSICIAN Internal Medicine; OTHER PHYSICIAN Internal Medicine
DX: I48.19 Other persistent atrial fibrillation (principal); I42.8 Other cardiomyopathies; I48.3 Typical atrial flutter; E11.9 Type 2 diabetes mellitus without complications; J45.909 Unspecified asthma, uncomplicated; K76.0 Fatty (change of) liver, not elsewhere classified; E66.9 Obesity, unspecified; Z68.37 Body mass index [BMI] 37.0-37.9, adult; Z87.891 Personal history of nicotine dependence; G47.33 Obstructive sleep apnea (adult) (pediatric); Z79.899 Other long term (current) drug therapy; Z79.01 Long term (current) use of anticoagulants
CPT/HCPCS: C1733; C1894; C1766; 36415; 75572; 80053; 82962; 83735; 85025; 85347; 85610; 86850; 86900; 86901; 93005; 93655; 93656; 93657; Q9967

== ENCOUNTER 2024-10-19 02:47 | Emergency (ER) | payer BC, SELFPAY ==
[2024-10-19 02:54] VITALS: BP 188/109
[2024-10-19 03:00] VITALS: BMI 39.7
[2024-10-19 03:03] VITALS: BP 153/71
--- NOTE | 2024-10-19 03:06 | ED.GENMED ---
History of Present Illness
<Brain Mckeon MD, Resident - Last Filed: 10/19/24 05:17>
General
Chief Complaint: Cardiac Symptoms
Source: patient
Time Seen by Provider: 10/19/24 03:00
History of Present Illness
History of Present Illness:
Patient is a 44-year-old male who presents to the emergency department with chest palpitations with right-sided chest pain. He has a history of atrial fibrillation/flutter ablation in July. Patient takes Eliquis, metoprolol, amiodarone and has been
compliant with his medications. He has a history of asthma and takes a rescue inhaler and Singulair during the summertime. He has been seen in the emergency department in the past for atrial flutter prior to his ablation and required 2
cardioversions and return to normal sinus rhythm. Patient was in his normal state of health and was doing some housework when around noon he became lightheaded and noticed that he was having chest palpitations. He went to rest but the symptoms
continued and kept getting worse. during the palpitations he felt as if he was starting to get short of breath and took multiple doses of his albuterol rescue inhaler. He has had a mild headache all day. During the physical exam in the emergency
department he stated that his chest pain changed from his right side to his left side. he rated the chest pain a 1 out of 2 and dull.
Past History
<Brain Mckeon MD, Resident - Last Filed: 10/19/24 05:17>
Past History
ED Past Medical History: Arrthythmia and NIDDM
ED Past Surgical History: None
Social History
Tobacco: Non-smoker
Alcohol: Occasional
Drug: None
Personal:
Living: with family
Employment: Employed
Review of Systems
<Brain Mckeon MD, Resident - Last Filed: 10/19/24 05:17>
Review of Systems
Constitutional: Reports no symptoms
EENT: Reports no symptoms
Respiratory: Reports other ( shortness of breath)
Cardiac: Reports chest pain ( right-sided chest pain that shifted to the left side rated at a 1 out of 2) and palpitations
ABD/GI: Reports no symptoms
: Reports no symptoms
Musculoskeletal: Reports no symptoms
Skin: Reports no symptoms
Neurological: Reports no symptoms
Endocrine: Reports no symptoms
Hematologic/Lymphatic: Reports no symptoms
Psychiatric: Reports no symptoms
Phy Exam
<Brain Mcekon MD, Resident - Last Filed: 10/19/24 05:17>
General Physical Exam
General Presentation: well appearing and no apparent distress
General age: appears stated age
General Skin: warm
General Habitus: normal and obese
General Mental: alert
General Hydration: appears well hydrated
Cardiovascular Exam
Cardiovascular Exam: regular rate/rhythm, no edema, no gallop, no JVD, no murmur and normal peripheral pulses
Pulmonary Exam
Pulmonary Exam: lungs clear, no respiratory distress, no rales, chest non tender, no crackles, no rhonchi, no stridor, no wheezing and no cough
Neurological Exam
Neurological Exam: alert, oriented x3, no motor deficits and speech normal
Psychiatric Exam
Psychiatric Exam: normal mood/affect
Course
<Brain Mckeon MD, Resident - Last Filed: 10/19/24 05:17>
Orders/Labs/Results
Orders:
Orders
10/19/24 02:48
EKG [Electrocardiogram (*1)] Urgent
Reason for Study: Palpitations
EKG- Treatment ONCE
10/19/24 03:38
Complete Blood Count/With Diff Urgent
Comprehensive Metabolic Panel Urgent
D-Dimer Urgent
Troponin I Urgent
10/19/24 04:51
Potassium Chloride [KCl] 40 meq PO NOW STA
Abnormal Lab Results
10/19/24
03:38
Abs Immat Gran (auto) 0.1 H 10^3/uL
(0-0.05)
Absolute Monos (auto) 0.7 H 10^3/uL
(0.1-0.6)
Immature Gran % 0.6 H %
(0-0.5)
Potassium 3.3 L mmol/L
(3.5-5.1)
Chloride 110 H mmol/L
(98-107)
Glucose 163 H mg/dl
(70-99)
10/19/24 03:38
10/19/24 03:38
Vital Signs
Initial and Last Documented VS:
Initial Vital Signs
Temp Pulse Resp BP Pulse Ox
98.1 F 90 20 188/109 100
10/19/24 02:54 10/19/24 02:54 10/19/24 02:54 10/19/24 02:54 10/19/24 02:54
Last Documented Vital Signs
Temp Pulse Resp BP Pulse Ox
98.1 F 86 13 122/69 96
10/19/24 02:54 10/19/24 04:00 10/19/24 04:00 10/19/24 04:00 10/19/24 04:00
<Courtney Hennessy, DO - Last Filed: 10/19/24 05:14>
Orders/Labs/Results
Orders:
Orders
10/19/24 02:48
EKG [Electrocardiogram (*1)] Urgent
Reason for Study: Palpitations
EKG- Treatment ONCE
10/19/24 03:38
Complete Blood Count/With Diff Urgent
Comprehensive Metabolic Panel Urgent
D-Dimer Urgent
Troponin I Urgent
10/19/24 04:51
Potassium Chloride [KCl] 40 meq PO NOW STA
Abnormal Lab Results
10/19/24
03:38
Abs Immat Gran (auto) 0.1 H 10^3/uL
(0-0.05)
Absolute Monos (auto) 0.7 H 10^3/uL
(0.1-0.6)
Immature Gran % 0.6 H %
(0-0.5)
Potassium 3.3 L mmol/L
(3.5-5.1)
Chloride 110 H mmol/L
(98-107)
Glucose 163 H mg/dl
(70-99)
10/19/24 03:38
10/19/24 03:38
Vital Signs
Initial and Last Documented VS:
Initial Vital Signs
Temp Pulse Resp BP Pulse Ox
98.1 F 90 20 188/109 100
10/19/24 02:54 10/19/24 02:54 10/19/24 02:54 10/19/24 02:54 10/19/24 02:54
Last Documented Vital Signs
Temp Pulse Resp BP Pulse Ox
98.1 F 86 13 122/69 96
10/19/24 02:54 10/19/24 04:00 10/19/24 04:00 10/19/24 04:00 10/19/24 04:00
<Brain Mckeon MD, Resident - Last Filed: 10/19/24 05:17>
*Pulse Oximetry
SaO2: 100
Oxygen Mode of Delivery: Room air
Patient hypoxic: no
*Critical Care Note
Total Time (30-74mins, 75-104mins- exclusive of procedures): 60
<Brain Mckeon MD, Resident - Last Filed: 10/19/24 05:17>
Update Note
Update Note:
Problem List:
Chest pain
shortness of breath
palpitations
headache
Plan:
CBC and BMP ordered
troponins ordered
EKG ordered
D-dimer ordered
Differential Diagnoses:
acute coronary syndrome
atrial fibrillation/flutter
GERD
musculoskeletal pain
pulmonary embolism
hypertension
Radiology: not applicable
EKG:
Labs:
Updates:
ED Attending Note
<Brain Mckeon MD, Resident - Last Filed: 10/19/24 05:17>
-
Portions of this chart may have been created with voice recognition software.� Occasional wrong word or��sound alike� substitutions may have occurred due to the inherent limitations of voice recognition software.
<Courtney Hennessy DO - Last Filed: 10/19/24 05:14>
ED Attending Note
Patient seen and examined by attending physician: Yes
I performed a history and physical exam of patient and discussed management with resident, I reviewed resident's note and agree with documented findings and plan of care.: Yes
ED Attending Note:
This is a 44-year-old gentleman with history of [id number] diabetes, history of asthma as well as A-fib flutter who underwent A-fib ablation August 19 of this year. He presents with palpitations, chest pain, shortness of breath, headache
that began this afternoon, persistent throughout the day. He has not had a cough nor fever. He denies dizziness or lightheadedness. Symptoms somewhat similar to previous episodes of A-fib. He did use his albuterol inhaler twice this evening.
Unsure if symptoms are similar to his prior asthma exacerbations. He denies leg pain or swelling.
He has been compliant with twice daily Eliquis, once daily amiodarone, twice daily metoprolol. Maintained on Mounjaro for diabetes with reported excellent results.
44-year-old overweight gentleman appears his stated age, awake and alert, pleasant, appears in no acute distress. Afebrile. Moderately hypertensive initially, has normalized upon recheck. 130/67.
Heart is regular rate and rhythm. No murmur no rub. Lungs: Scant end expiratory wheeze left lower lobe that clears after additional deep inspiration. Otherwise clear to auscultation.
Concern for recurrent A-fib flutter however EKG is reassuring showing normal sinus rhythm. He states symptoms have been persistent throughout the day thus paroxysmal A-fib flutter is less likely but will continue residential monitor.
Concern for exacerbation of asthma, pneumonia, electrolyte abnormality.
Concern for ACS.
Other consideration is PE however again less likely as patient has been compliant with twice daily Eliquis.
Unremarkable thyroid function April of this year. No indication to repeat.
Will check labs including troponin, D-dimer.
Will consider imaging depending on results.
05:00
Labs are unremarkable save for mild hypokalemia at 3.3. Normal D-dimer. Normal troponin.
Monitor continues to show normal sinus rhythm in the 80s.
Blood pressure is normalized 122/70.
Respirations are easy and nonlabored. No cough. He remains afebrile.
I suspect an element of musculoskeletal chest pain.
Will replete potassium with a dose of K-Kate
Discussed importance of staying well-hydrated on a daily basis.
Continue current medications.
Prompt follow-up with PCP as well as desulfurizer operator.
Discharge Plan
Departure
Patient Disposition: Home (Routine Discharge)
Date of Disposition: 10/19/24
Time of Disposition: 05:12
Patient with high blood pressure during this ER visit?: No
Condition: Good
Discharge Problem:
Heart palpitations, Nonspecific chest pain, Acute hypokalemia
Instructions: Palpitations - ED (DC), Chest Pain NON-[facility] Program Engagement Director Follow Up
Prescriptions:
No Action
Eliquis 5 mg Tablet
5 mg PO BID
amiodarone 200 mg Tablet
200 mg PO DAILY
metoprolol succinate 50 mg Tablet Extended Release 24 Hr
75 mg PO BID
albuterol sulfate 90 mcg/actuation Hfa Aerosol Inhaler
2 puff INHALATION 6XD PRN (Reason: asthma)
Mounjaro 5 mg/0.5 mL Pen Injector
5 mg SC FR
Referrals:
Franny Gama MD [Family Provider, Internal Medicine] - Call in 1-3 days for appt
Activity Restrictions/Additional Instructions:
Stay well-hydrated on a daily basis.
Continue current medications.
Touch base with your desulfurizer operator next week for recheck.
Interventions
Interventions:
*Risk Screen - Suicide Last Done: 10/19/24 02:54
*General Assessment Last Done: 10/19/24 02:54
*Neglect/Abuse Screening Last Done: 10/19/24 02:54
*ED- Fall Risk Assessment Last Done: 10/19/24 03:00
*ED COVID-19 Vaccine History Last Done: 10/19/24 03:00
ED- Pulmonary Assessment Last Done: 10/19/24 03:00
ED- Cardiac Assessment Last Done: 10/19/24 03:00
Discharge Date and Time
Print Language: SAMI
[2024-10-19 03:28] VITALS: BP 130/67
[2024-10-19 03:51] LABS: Hematocrit 41.5 % (39.0-52.0); Hemoglobin 14.2 g/dL (13.0-18.0); Mean Corp Hgb Conc. 34.2 g/dL (33.0-37.0); Mean Corpuscular Volume 86.5 fL (80.0-94.0); Nucleated Red Blood Cells % 0 % (-); Platelet Count 260 10^3/uL (130-400); Red Cell Dist. Width 13.4 % (11.5-14.5)
[2024-10-19 04:00] VITALS: BP 122/69
[2024-10-19 04:03] LABS: D-Dimer 0.28 ug/mlFEU (0.00-0.50)
[2024-10-19 04:13] LABS: ALT (SGPT) 39 U/L (0-50); AST (SGOT) 27 U/L (17-59); Albumin 4.3 g/dl (3.5-5.0); Alkaline Phosphatase 68 U/L (38-126); Blood Urea Nitrogen 13 mg/dl (9-20); Calcium 9.0 mg/dl (8.4-10.2); Carbon Dioxide 25 mmol/L (22-30); Chloride 110 mmol/L (98-107); Estimated Creatinine Clearance > 125 ml/min; Glucose 163 mg/dl (70-99); Potassium 3.3 mmol/L (3.5-5.1); Sodium 142 mmol/L (135-145); Total Protein 7.4 g/dl (6.3-8.2); eGFR > 60.00
[2024-10-19 04:24] LABS: Troponin I < 0.012 ng/ml
[2024-10-19 05:00] VITALS: BP 123/71
[2024-10-19] MEDS: KCL 40 MEQ PO (05:32)
== END 2024-10-19 05:35 | disposition home or self-care (01) ==
LOC: EMR 02:47
PROVIDERS: EMERGENCY PHYSICIAN Emergency Medicine; FAMILY PHYSICIAN Internal Medicine
DX: R00.2 Palpitations (principal); R07.89 Other chest pain; E87.6 Hypokalemia; E11.9 Type 2 diabetes mellitus without complications; I48.91 Unspecified atrial fibrillation; J45.909 Unspecified asthma, uncomplicated; Z79.01 Long term (current) use of anticoagulants; Z79.84 Long term (current) use of oral hypoglycemic drugs; Z79.899 Other long term (current) drug therapy
CPT/HCPCS: 99283; 80053; 84484; 85025; 85379; 93005